=== PATIENT | male | born 1995 | race African-American/Black ===

== ENCOUNTER 2017-08-18 14:41 | Emergency (ER) | payer SELFPAY ==
[2017-08-18 14:49] VITALS: BP 126/79; PULSE 80; TEMP 98.6; BMI 20.9
--- NOTE | 2017-08-18 15:08 | PDOC ---
Rapid Medical Evaluation Chief Complaint: Sore Throat Medical Evaluation: Allergies Allergy/AdvReac Type Severity Reaction Status Date / Time No Known Allergies Allergy Verified 06/23/16 11:51 Vital Signs Temp Pulse Resp BP Pulse Ox 98.6 F 80 18 126/79 100 08/18/17 14:46 08/18/17 14:46 08/18/17 14:46 08/18/17 14:46 08/18/17 14:46 I have performed a brief in-person evaluation of this patient. The patient presents with a chief complaint of: sore throat, fever, difficulty swallowing since last night. Pertinent physical exam findings: 2+erythematous, edematous tonsils with exudate b/l. Right tonsil bigger than left. +tender anterior cervical lymphadenopathy. Uvula midline. No trismus. Pt handles his own secretions. I have ordered the following: nothing. Will d/c with rx for PCN to treat strep throat. The patient will proceed to the ED for further evaluation. Discharge Disposition - Diagnosis Strep pharyngitis - Discharge Dispostion Disposition: HOME Condition at time of disposition: Good - Referrals - Patient Instructions Printed Discharge Instructions: DI for Strep Throat Additional Instructions: Discharge Instructions: -You have strep throat -A prescription for antibiotics has been sent to your pharmacy -Drink lots of fluids -Gargle with warm salt water -Eat cold/soft foods -Take Motrin for fever/pain -Return to the ER with any worsening or concerning symptoms - Post Discharge Activity
== END 2017-08-18 15:29 | disposition home or self-care (01) ==
LOC: JER 14:41
DX: J02.0 Streptococcal pharyngitis (principal); B95.5 Unspecified streptococcus as the cause of diseases classified elsewhere
CPT/HCPCS: 99281-25

== ENCOUNTER 2021-03-18 13:14 | Emergency (ER) | payer SELFPAY ==
[2021-03-18 13:36] VITALS: BP 114/74; PULSE 59; TEMP 98.3; BMI 21.4
[2021-03-18] MEDS ORDERED: KETOROLAC TROMETHAMINE 30 MG/1 ML VIAL IM ONE (13:53)
== END 2021-03-18 14:03 | disposition home or self-care (01) ==
LOC: JERFT 13:14
DX: K08.89 Other specified disorders of teeth and supporting structures (principal)
CPT/HCPCS: 99283-25

== ENCOUNTER 2022-03-16 21:12 | Emergency (ER) | payer SELFPAY ==
[2022-03-16 21:21] VITALS: BP 118/77; PULSE 83; RESP 19; TEMP 98.6; BMI 20.7
[2022-03-16] MEDS ORDERED: DIPHTH,PERTUSS(ACELL),TET 0.5 ML DISP.SYRIN IM ONE ×2 (23:05→23:30)
[2022-03-16] MEDS ORDERED: KETOROLAC TROMETHAMINE 30 MG/1 ML VIAL IM ONE (23:05)
[2022-03-16] MEDS ORDERED: KETOROLAC TROMETHAMINE 30 MG/1 ML VIAL ONE (23:30)
== END 2022-03-17 00:37 | disposition short-term general hospital (02) ==
LOC: JER 21:12
PROC: 3E0234Z Introduction of Serum, Toxoid and Vaccine into Muscle, Percutaneous Approach (ICD-10-PCS; principal; 2022-03-16)
PROC: 3E0233Z Introduction of Anti-inflammatory into Muscle, Percutaneous Approach (ICD-10-PCS; 2022-03-16)
DX: S01.511A Laceration without foreign body of lip, initial encounter (principal); W50.0XXA Accidental hit or strike by another person, initial encounter; Y93.67 Activity, basketball
CPT/HCPCS: 90715; 99284-25

== ENCOUNTER 2023-06-12 14:47 | Emergency (ER) | payer BC ==
[2023-06-12 14:52] VITALS: BP 114/71; PULSE 89; RESP 16; TEMP 97.6; BMI 20.7
[2023-06-12] MEDS ORDERED: IBUPROFEN 600 MG TABLET (FP) PO ONE ×2 (16:00→16:38)
== END 2023-06-12 17:15 | disposition home or self-care (01) ==
LOC: JERFT 14:47
DX: K08.89 Other specified disorders of teeth and supporting structures (principal); J06.9 Acute upper respiratory infection, unspecified; B97.89 Other viral agents as the cause of diseases classified elsewhere; J34.89 Other specified disorders of nose and nasal sinuses; R51.9 Headache, unspecified; J39.2 Other diseases of pharynx; Z20.822 Contact with and (suspected) exposure to COVID-19
CPT/HCPCS: 0241U-QW; 87070; 87651; 99283-25